=== PATIENT | female | born 1995 | race Hispanic/Latino ===

== ENCOUNTER 2022-04-06 05:47 | Emergency (ER) | payer OTHER, SELFPAY ==
--- NOTE | ~2022-04-06 | XR_ITS ---
EXAMINATION: XR chest 1V portable DATE: 04/06/2022 08:33 INDICATION: Cough. Wheezing. TECHNIQUE: A single frontal view of the chest was obtained. COMPARISON: None. FINDINGS: There is no pneumonia, pleural effusion, or pneumothorax. The heart size is normal. IMPRESSION: 1. No acute cardiopulmonary disease. Reviewed, dictated and finalized at location A. TMENT COORDINATOR
[2022-04-06 06:04] VITALS: BP 132/93; PULSE 98; RESP 20; TEMP 36.6; O2SAT 97
--- NOTE | 2022-04-06 07:50 | ED.GENADULT ---
HPI - General Adult General Chief complaint: Asthma Stated complaint: asthma Time Seen by Provider: 04/06/22 06:55 History of Present Illness HPI narrative: This is a 26-year-old female presenting ED for shortness of breath. Patient has had URI symptoms for 7 days. This include cough congestion and nausea. She denies vomiting or diarrhea. patient has history of asthma and is treated home with albuterol rescue inhalers but no other medications. She rarely comes to the ER for asthma exacerbations. She does have a sick child with her in the emergency department is being evaluated for croup. Patient is not vaccinated against flu or COVID. Related Data Allergies Allergy/AdvReac Type Severity Reaction Status Date / Time No Known Allergies Allergy Verified 04/06/22 08:06 Review of Systems Review of Systems: CONSTITUTIONAL: Denies night sweats. EYES: No eye pain ENT: Denies rhinorrhea CARDIOVASCULAR: Denies palpitations RESPIRATORY: Denies hemoptysis GASTROINTESTINAL: Denies hematemesis GENITOURINARY: Denies hematuria. SKIN: Denies rash MUSCULOSKELETAL: Denies myalgia. NEUROLOGIC: Denies weakness. PSYCHIATRIC: Denies delusions PMFSH Past Medical History Medical History Asthma Social History Social History Social History: Denies alcohol tobacco or drugs Exam Narrative: APPEARANCE: No apparent distress. Patient is holding her child on her chest. Head: atraumatic. EYES: EOMI, NOSE: Atraumatic NECK: Trachea midline RESPIRATORY: scattered expiratory wheezing, speaking in full sentences, no increased work of breathing.\breathing CARDIOVASCULAR: RRR, ABDOMINAL: Non-distended MUSCULOSKELETAl: No obvious deformities NEURO: Alert. Moving 4/4 extremities SKIN:: Warm, dry. Normal color PSYCHIATRIC: Normal affect Course Vital Signs Vital signs: Vital Signs Temperature 97.8 F 04/06/22 06:04 Pulse Rate 98 04/06/22 06:04 Respiratory Rate 20 04/06/22 06:04 Blood Pressure 132/93 H 04/06/22 06:04 Pulse Oximetry 97 04/06/22 06:04 Oxygen Delivery Room Air 04/06/22 06:04 Temperature 97.8 F 04/06/22 06:04 Pulse Rate 98 04/06/22 06:04 Respiratory Rate 22 H 04/06/22 08:11 Blood Pressure 132/93 H 04/06/22 06:04 Pulse Oximetry 97 04/06/22 08:11 Oxygen Delivery Room Air 04/06/22 08:11 Medical Decision Making MDM Narrative Medical decision making narrative: This is a 26-year-old female presenting ED with shortness of breath. She has URI symptoms and a sick child with her. Patient will be given a nebulizer treatment and a shot of dexamethasone. Chest x-ray and viral swabs have been ordered. Patient was positive for flu. She has had symptoms for 3 days and is not a candidate for Tamiflu. Chest x-ray did not show pneumonia. On re-evaluation patient is well appearing stable vital signs. Patient will be discharged. She can take dscw-eed-teorwup Motrin Tylenol for her symptoms. Vital Signs Vital Signs: Vital Signs Temperature 97.8 F 04/06/22 06:04 Pulse Rate 98 04/06/22 06:04 Respiratory Rate 20 04/06/22 06:04 Blood Pressure 132/93 H 04/06/22 06:04 Pulse Oximetry 97 04/06/22 06:04 Oxygen Delivery Room Air 04/06/22 06:04 Temperature 97.8 F 04/06/22 06:04 Pulse Rate 98 04/06/22 06:04 Respiratory Rate 22 H 04/06/22 08:11 Blood Pressure 132/93 H 04/06/22 06:04 Pulse Oximetry 97 04/06/22 08:11 Oxygen Delivery Room Air 04/06/22 08:11 Lab Data Labs: Lab Results 04/06/22 Range/Units 08:03 Influenza A (RT-PCR) Positive (Negative) Influenza B (RT-PCR) Negative (Negative) RSV (RT-PCR) Negative (Negative) SARS-CoV-2 RNA (RT-PCR) Negative Discharge Plan Discharge Clinical Impression: Asthma, Influenza A Patient Disposition: Home, Self-Care Condition: Stable Instructions: A
[2022-04-06] MEDS: ALBUTEROL SULFATE NEB 2.5 MG/3 ML INH 5 MG INHALATION (08:03)
[2022-04-06] MEDS: IPRATROPIUM BR 0.02% INH SOLN 0.5 MG/2.5 ML VIAL INHALATION (08:03)
[2022-04-06 08:11] VITALS: RESP 22; O2SAT 97
[2022-04-06 08:45] LABS: Influenza A QL RT-PCR Positive (Negative); Influenza B QL RT-PCR Negative (Negative); RSV RNA, RT-PCR Negative (Negative); SARS-CoV-2 RNA PCR Negative
== END 2022-04-06 09:29 | disposition home or self-care (01) ==
PROVIDERS: Emergency Provider Emergency Medicine
DX: J10.1 Influenza due to other identified influenza virus with other respiratory manifestations (principal); J45.909 Unspecified asthma, uncomplicated; Z20.822 Contact with and (suspected) exposure to COVID-19
CPT/HCPCS: 71045; 87637; 94640; 96372; 99283; J1100

== ENCOUNTER 2022-11-29 21:07 | Emergency (ER) | payer OTHER, SELFPAY ==
--- NOTE | ~2022-11-29 | XR_ITS ---
EXAMINATION: XR chest 2V DATE: 11/29/2022 23:00 INDICATION: Shortness of breath post fall TECHNIQUE: PA and lateral views of the chest were obtained. COMPARISON: Chest radiograph dated 04/06/22 FINDINGS: The lungs remain clear with no focal airspace opacities, pulmonary edema, pleural effusion or pneumot horax. The cardiomediastinal silhouette is normal. Mild upper cervical levocurvature. IMPRESSION: 1. No acute cardiopulmonary disease. Reviewed, dictated and finalized at location A.
--- NOTE | ~2022-11-29 | CT_ITS ---
EXAMINATION: CT cervical spine wo con DATE: 11/29/2022 21:24 INDICATION: Neck pain post fall from horse with head injury 3 days prior TECHNIQUE: Computed tomography (CT) of the cervical spine was performed without intravenous contrast. Automated exposure control and iterative reconstruction technique were employed. The dose-length pro duct was 557.45 mGy-cm. COMPARISON: None FINDINGS: Straightening of the normal cervical lordosis which could be positional or due to muscle spasm. No sp ondylolisthesis. Vertebral body and disc heights are normal. Minimal to mild facet osteoarthritis at a few levels the cervical and upper thoracic spine. Uncovertebral joints are normal. No central canal or neural foraminal stenosis. Small amount of gas scattered in the soft tissues between the trachea and the medial margin of the right apex which appears extrapleural with differential including small tracheal diverticulum or sequela of a focal adjacent tracheal or esophageal injury. Cervical soft tis sues are otherwise unremarkable. IMPRESSION: 1. Straightening of the normal cervical lordosis which could be positional or due to muscle spasm. No other acute osseous abnormality. 2. Small region of gas in the soft tissues along the right side of the trachea at the thoracic inlet which could represent a tracheal diverticulum or sequela of adjacent ventricular esophageal injury. Reviewed, dictated and finalized at location A. IMPRESSION: 1. Straightening of the normal cervical lordosis which could be positional or d ue to muscle spasm. No other acute osseous abnormality. 2. Small region of gas in the soft tissues along the right side of the trachea at the thoracic inlet which could represent a tracheal diverticulum or sequela of adjacent ventricular esophageal injury.
--- NOTE | ~2022-11-29 | CT_ITS ---
EXAMINATION: CT brain wo con DATE: 11/29/2022 21:24 INDICATION: Head injury with subsequent headache TECHNIQUE: Computed tomography (CT) of the head was performed without intravenous contrast. Sagittal and coronal reconstructions were performed. The mA was adjusted according to patient size. Iterative reconstruction technique was employed. The dose-length product was 605.33 mGy-cm. COMPARISON: None FINDINGS: No fracture. No acute intracranial hemorrhage, acute infarction or abnormal extra axial fluid collect ion. Ventricles are normal and symmetric. No mass/mass effect. The orbits, paranasal sinuses and mast oid air cells are normal. IMPRESSION: 1. Normal head CT. Reviewed, dictated and finalized at location A. IMPRESSION: 1. Normal head CT.
[2022-11-29 21:08] VITALS: BP 138/79; PULSE 81; RESP 16; TEMP 36.9; O2SAT 100
--- NOTE | 2022-11-29 23:07 | ED.HEATRA ---
HPI - Head Injury General Chief complaint: Head Injury <JULIO Landa Last Filed: 11/30/22 01:09> Stated complaint: fall yesterday <JULIO Landa Last Filed: 11/30/22 01:09> Time Seen by Provider: 11/29/22 22:40 <JULIO Landa Last Filed: 11/30/22 01:09> Source: patient <JULIO Landa Last Filed: 11/30/22 01:09> Mode of arrival: ambulatory <JULIO Landa Last Filed: 11/30/22 01:09> Limitations: no limitations <JULIO Landa Last Filed: 11/30/22 01:09> History of Present Illness HPI Narrative: This is a 27 year old female that presents to the ER after a head injury 3 days ago with headache and neck pain. Reports she was bucked off of a horse. Fell onto her left side. Does report hitting her head. Denies loss of consciousness. Reports lightheadedness and nausea. Reports headache unrelieved with over the counter pain medications. Denies vision changes, vomiting, numbness or weakness. <Spring Sharpe PA-C - Last Filed: 11/30/22 01:09> Related Data Allergies/Adverse reactions: Allergies Allergy/AdvReac Type Severity Reaction Status Date / Time No Known Allergies Allergy Verified 04/06/22 08:06 <JULIO Landa Last Filed: 11/30/22 01:09> Review of Systems Review of Systems: CONSTITUTIONAL: Denies fever EYES: Denies visual changes CARDIOVASCULAR: Denies chest pain RESPIRATORY: Denies dyspnea. GASTROINTESTINAL: Denies vomiting MUSCULOSKELETAL: Reports joint pain, and myalgia. NEUROLOGIC: Reports headache. Denies numbness, or weakness. <JULIO Landa Last Filed: 11/30/22 01:09> All systems reviewed & are unremarkable except as noted in HPI and below <JULIO Landa Last Filed: 11/30/22 01:09> [facility] Past Medical History Medical History: Medical History Asthma <Spring Sharpe PA-C - Last Filed: 11/30/22 01:09> Social History Social History: Social History Social History: Denies alcohol tobacco or drugs <Spring Sharpe PA-C - Last Filed: 11/30/22 01:09> Exam Narrative: GENERAL: Well-appearing, well-nourished, and in no acute distress. HEAD: Normocephalic, atraumatic. EYES: PERRLA and EOMI. ENT: Nares clear, no rhinorrhea or epistaxis. Mucous membranes moist. Oropharynx without tonsillar hypertrophy exudate or other lesions. Bilateral TMs pearly walker non-bulging NECK: Supple. No adenopathy or masses. Tender to palpation of left trapezius musculature. No crepitus CHEST: Clear to auscultation. No respiratory distress. No wheezes rales or rhonchi. No crepitus HEART: Regular rate and rhythm. No murmur heard. Normal peripheral pulses. BACK: No midline thoracic or lumbar spine tenderness EXTREMITIES: Normal range of motion. No edema. Strength equal in bilateral upper and lower extremities (5/5) SKIN: Warm, dry, no rash. NEURO: No focal deficits. Alert and oriented x3. Cranial nerves II through XII grossly intact. Normal heel to pineda. Normal gait PSYCH: Normal mood and affect <Spring Sharpe PA-C - Last Filed: 11/30/22 01:09> Course Course Emergency Course: Patient was updated on workup and agrees with plan of care <Spring Sharpe PA-C - Last Filed: 11/30/22 01:09> TOWN CLERK/PA Physician Supervision For this patient encounter, I reviewed the TOWN CLERK or PA documentation, treatment plan, and I was responsible for the medical decision making; and I had pekb-fi-zany time with this patient. <Jeffrey Srivastava MD - Last Filed: 11/30/22 04:23> Consultations Consultation #1: Spoke with Dr. Hopson about patient and workup. Reports patient could likely have a small amount of pneumomediastinum causing findings in CT neck. No concern or recommendation for further observation as patient's vitals are stable and this is a 3 day old injury <Spring Sharpe PA-C
[2022-11-29] MEDS: ACETAMINOPHEN 500 MG TABLET 1000 MG PO (23:14)
[2022-11-30] MEDS: IBUPROFEN 600 MG TABLET PO (00:59)
[2022-11-30 01:16] VITALS: BP 124/66; PULSE 82; RESP 15; O2SAT 100
== END 2022-11-30 01:17 | disposition home or self-care (01) ==
PROVIDERS: Emergency Provider Physician Assistant
DX: S09.90XA Unspecified injury of head, initial encounter (principal); M54.2 Cervicalgia; V80.010A Animal-rider injured by fall from or being thrown from horse in noncollision accident, initial encounter
CPT/HCPCS: 70450; 71046; 72125; 99284; A9270